=== PATIENT | female | born 1965 | race Caucasian/White ===

== ENCOUNTER 2018-09-21 05:32 | Day surgery (SDC) | payer OTHER ==
[~2018-09-21] VITALS: Ht 167.6 cm; Wt 81.2 kg
[~2018-09-21 05:32] MED LIST: ACETAMINOPHEN-1 EAC1 PO; CALCIUM + VITA1 EACH PO; MAXZIDE-25 MG1 EACH PO; ONDANSETRON HCL4 M2 PO; PRESERVISION T1 EACH PO
[2018-09-21 07:19] VITALS: BP 139/83
[2018-09-21 07:24] LABS: CREATININE 0.7 mg/dL (0.6-1.0); POTASSIUM 3.9 mmol/L (3.5-5.1)
--- NOTE | 2018-09-21 08:36 | EKG ---
[address] [address] ELECTROCARDIOGRAM REPORT Name: ROX SAMAYOA Room #: [address] [place] [address]#: [id number] ������������������ Admission: 09/21/18 ������������������ Attend Phys: Nate Gannon MD Discharge: ������������������ Date of : 63 Report #: [id number] ����������������������������������������������������������������� [id number] THIS REPORT FOR: //name// [facility] Test Date: 2018-09-21 Test Time: 06:30:56 Pat Name: ROX SAMAYOA Department: Room: [facility] Gender: F Court Monitor: DORINDA : 1965 Requested By: Nate Gannon Order Number: [id number] MD: Archie Muniz Measurements Intervals [place] Rate: 77 P: -9 [place]: 134 QRS: 14 QRSD: 93 T: 28 QT: 401 QTc: 454 Interpretive Statements Sinus rhythm No previous ECG available for comparison Electronically Signed On 09-21-2018 8:36:40 CDT by Archie Muniz [email or web address] ��������������������������������������������� <ELECTRONICALLY SIGNED> ���������������������������������������� By: Archie Muniz MD ��������������������������������������������� 09/21/18 0836 0630 9 Archie Muniz MD /SHAUNNA
--- NOTE | 2018-09-21 10:47 | NUR ---
REC PT AROUND 1040AM, A&0X4, C/O SOME NAUSEA, REPORT WAS THAT SHE'D JUST RECEIVED TORADOL. GIVING CLEAR LIQ AND WILL ADVANCE DIET TOLERATED, ON 2L PER PROTOCOL, WILL CONTINUE TO MONITOR
[2018-09-21 13:19] VITALS: BP 120/49
[2018-09-21 16:10] VITALS: BP 119/54
--- NOTE | 2018-09-21 16:15 | NUR ---
PT WALKED IN ROOM FOR A BIT W/NURSE AND SPOUSE. NOT TOLERATING PO YET, COMPLETELY. HAS HAD JELLO AND SPRITE AND WHEN ASKED ABOUT ADVANCING DIET WAVES HER HAND IN DISGUST, AT THIS TIME. WILL CONTINUE TO MONITOR AND HANDLE SX W/MED ADM
[2018-09-21 17:32] VITALS: BP 119/54
--- NOTE | 2018-09-22 16:06 | PATH ---
[facility] [address] [place] [address] PATHOLOGY RPT PROCEDURE Name: KYLAH SAMAYOA Kristie Room #: [place]P [facility] [place].#: [id number] ������������������ Admission: 09/21/18 ������������������ Date of : 63 Discharge: 09/21/18 Report #: [id number] Path Case #: [id number] [facility] Accession Number: [id number] . 01 Material submitted: . LUMBAR FOUR THROUGH FIVE DISC . 01 Clinical history: . Disc displacement, disorder . 02 Diagnosis: Disc, lumbar 4 to 5 disc, discectomy: - Reactive chondroid tissue, compatible with nucleus pulposus, history of disc displacement. 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 02 Electronically signed: . Yuridia Zayas MD, Pathologist NPI- [id number] . 01 Gross description: . The specimen is received in formalin, labeled "Burleson, Kylah, lumbar 4 through 5", are multiple irregular fragments of cardenas to pink, sanderson-white fibrous tissue measuring 3.0 x 2.8 x 0.7 cm in aggregate. 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 (SWS; 09/21/2018) SHS/SHS . 02 Pathologist provided ICD-10: M51.86 . 02 CPT . 750317 Specimen Comment: A courtesy copy of this report has been sent to Specimen Comment: [phone]. Specimen Comment: Report sent to Performed at: [address], [place] [id number] MD Tarik Otero MD Phone: [phone] Performed at: [address] [id number] MD Yuridia Zayas MD Phone: [phone]
--- NOTE | 2018-09-25 11:15 | O ---
[facility] [place] [address] OPERATIVE REPORT Name: YAOROX Kristie Room #: DEP [facility]#: [id number] Admission: 09/21/18 ������������������ Attend Phys: Nate Gannon MD Discharge: 09/21/18 ������������������ Date of : 63 Report #: [id number] THIS REPORT FOR: //name// CC: Nate Gannon Leyla Tinoco DATE OF SERVICE: 09/21/2018 LOCATION: [place]. PREOPERATIVE DIAGNOSIS: Herniated disk of lumbar spine, L4-L5, left. POSTOPERATIVE DIAGNOSES: Herniated disk of lumbar spine, L4-L5, left. PROCEDURE: Decompressive laminectomy and diskectomy, L4-L5, left. SURGEON: Nate Gannon MD INDICATIONS: This 53-year-old female complains of severe and persistent low back pain with radiating pain to the left buttock, hip, thigh and leg. Clinical exam and MRI study confirm a herniated disk at L4-L5 toward the left side. She has less severe mild degenerative disk disease above and below that level, but without disk herniation. She has tried conservative measure without benefit and has elected to go ahead with surgical laminectomy and diskectomy. DESCRIPTION OF PROCEDURE: The patient was taken to the operating room where she was placed under general anesthesia. Prophylactic intravenous antibiotics were administered. She was turned to the prone position. The low back was meticulously prepped and draped. C-arm was used to localize the appropriate level. A skin incision was then made just to the left of midline overlying the L4-L5 interspace. This was carried through fascia and the muscle was retracted laterally. A small laminotomy in the inferior aspect of L4 and the superior aspect of L5 was created. The ligamentum was excised. A second C-arm view was obtained with a probe overlying the disk space confirming that I was at the appropriate level. The dura and nerve root were then retracted toward the midline. The disk was found to be quite prominent with very attenuated annulus and posterior longitudinal ligament. There were no extruded fragments in the canal; however. Once good exposure was established, the posterior longitudinal ligament and annulus were easily penetrated with a probe. A moderate amount of loose degenerative disk debris medially pushed through. This was removed. A good deal of additional loose degenerative disk debris was removed from within the disk space using pituitary rongeurs. A third C-arm view was obtained with a probe in the disk space confirming once again that I was at the appropriate L4-L5 level. The disk space was thoroughly decompressed. This resulted in marked improvement in the canal and good resolution of any persistent disk bulging. The canal was inspected proximally, distally and across the midline. [address] [address] OPERATIVE REPORT Name: ROX SAMAYOA Room #: DEP [facility] M.R.#: [id number] Admission: 09/21/18 ������������������ Attend Phys: Nate Gannon MD Discharge: 09/21/18 ������������������ Date of : 63 Report #: [id number] No other abnormalities were identified. Good hemostasis was obtained. A 40 mg of Depo-Medrol were left in the epidural space. The laminotomy defect was covered with a small sheet of Gelfoam soaked in thrombin. The fascia and muscle layer were closed with multiple #1 Vicryl sutures. The subcutaneous tissues were closed with 2-0 Monocryl. The skin was closed with 2-0 Prolene. Sterile dressing was applied. The patient was awakened and returned to the recovery room in good condition. ��������������������������������������������� <ELECTRONICALLY SIGNED> ���������������������������������������� By: Nate Gannon MD ��������������������������������������������� 09/25/18 1115 [id number] [id number] Nate Gannon MD /nt
== END 2018-09-21 19:00 | disposition home or self-care (01) ==
LOC: TBA 05:32 → OR 05:32 → 4E 11:51 → OR 13:00 → ENTRNSPT 17:56 → OR 19:00
PROVIDERS: Orthopaedic Surgery
DX: M51.26 Other intervertebral disc displacement, lumbar region (principal); Z98.890 Other specified postprocedural states; H81.09 Meniere's disease, unspecified ear; I10 Essential (primary) hypertension; Z90.710 Acquired absence of both cervix and uterus
CPT/HCPCS: 10783; 50010; 50101; 50402; 50704; 50850; 56525; 62110; 62900; 70005